=== PATIENT | male | born 1955 | race Two or more races ===

== ENCOUNTER 2019-04-29 18:35 | Emergency (ER) | payer OTHER ==
[~2019-04-29] VITALS: Ht 177.8 cm; Wt 126.1 kg
[2019-04-29] MEDS ORDERED: DORADOL (18:49)
== END 2019-04-29 23:31 | disposition home or self-care (01) ==
LOC: ER 18:35
DX: K57.90 Diverticulosis of intestine, part unspecified, without perforation or abscess without bleeding (principal); K40.20 Bilateral inguinal hernia, without obstruction or gangrene, not specified as recurrent